=== PATIENT | female | born 1960 | race American Indian/Alaskan Native ===

== ENCOUNTER 2019-04-15 09:46 | Emergency (ER) | payer SELFPAY ==
[2019-04-15] MEDS ORDERED: HYDROcodone/ACETAMINOPHEN 5-325 MG TAB PO ONE (10:22)
[2019-04-15] MEDS ORDERED: ALBUTEROL 2.5 MG/3 ML NEBU IH ONE (10:22)
[2019-04-15] MEDS ORDERED: IPRATROPIUM 0.02% NEBU 2.5 ML IH ONE (10:22)
[2019-04-15] MEDS ORDERED: predniSONE 20 MG TAB PO ONE (10:22)
--- NOTE | 2019-04-15 10:28 | Emergency Department Report ---
HPI - General Chief Complaint: Chest Pain Time Seen by Provider: 04/15/19 10:14 - HPI HPI: Room 7 The patient is a 58-year-old female present with a chief complaint of shortness of breath and chest pain. The patient states for the past 9 days he has had a cold which includes cough, rhinorrhea and subjective fever. Patient states she is also had chest pain and shortness of breath. Patient describes her chest pain is sharp and intermittent in nature stating it usually comes on at night. Patient denies diaphoresis. Patient states she had one episode of nausea vomiting. ED Past Medical Hx - Past Medical History Hx Hypertension: Yes Hx Asthma: Yes Additional medical history: STAGE 4 KIDNEY FAILURE - Surgical History Additional Surgical History: Left ectopic , lipoma removal from back - Family History Family history: no significant - Social History Smoking Status: Never Smoker Substance Use Type: None (Denies illicit drug use) - Medications Home Medications: Home Medications Medication Instructions Recorded Confirmed Last Taken Type Albuterol INH(or & Nicu Only) 2 puff IH QID PRN #8.5 gram 04/15/19 Unknown Rx [ProAir HFA Inhaler] Albuterol Sulfate [Albuterol 0.63% 0.63 mg IH TID PRN #90 ml 04/15/19 Unknown Rx NEBS] Azithromycin [Zithromax Z-JOSUE] 0 mg PO DAILY #6 tab 04/15/19 Unknown Rx Benzonatate [Tessalon Perles] 100 mg PO Q8HR #30 capsule 04/15/19 Unknown Rx Prednisone [predniSONE 10 mg 10 mg PO .TAPER #1 tab.ds.pk 04/15/19 Unknown Rx (6-Day Pack, 21 Tabs)] Promethazine [Phenergan] 25 mg PO Q6HR PRN #20 tab 04/15/19 Unknown Rx Promethazine [Phenergan] 25 mg [place] Q6HR PRN #5 04/15/19 Unknown Rx traMADoL [Ultram] 50 mg PO Q6HR PRN #10 tablet 04/15/19 Unknown Rx ED Review of Systems ROS: Stated complaint: CHEST PAIN, SOB Other details as noted in HPI Constitutional: fever (Subjective). denies: diaphoresis Eyes: denies: eye pain ENT: denies: throat pain Respiratory: cough, shortness of breath Cardiovascular: chest pain Endocrine: no symptoms reported Gastrointestinal: nausea, vomiting Genitourinary: denies: dysuria Musculoskeletal: denies: back pain Neurological: denies: headache Physical Exam - Physical Exam Vital Signs: Vital Signs 04/15/19 10:01 Temperature 98.5 F Pulse Rate 75 Respiratory 24 Rate Blood Pressure 154/91 O2 Sat by Pulse 97 Oximetry Physical Exam: GENERAL: The patient is well-developed well-nourished female lying on stretcher not appearing to be in acute distress. [] HEENT: Normocephalic. Atraumatic. Extraocular motions are intact. Patient has moist mucous membranes. NECK: Supple. No meningitic signs are noted. There is no adenopathy noted. CHEST/LUNGS: Rhonchi diffuse wheezing. There is no respiratory distress noted. HEART/CARDIOVASCULAR: Regular. There is no tachycardia. There is no gallop rub or murmur. ABDOMEN: Abdomen is soft, nontender. Patient has normal bowel sounds. There is no abdominal distention. SKIN: There is no rash. There is no edema. There is no diaphoresis. NEURO: The patient is awake, alert, and oriented. The patient is cooperative. The patient has normal speech MUSCULOSKELETAL: There is no evidence of acute injury. ED Course Vital Signs 04/15/19 10:01 Temperature 98.5 F Pulse Rate 75 Respiratory 24 Rate Blood Pressure 154/91 O2 Sat by Pulse 97 Oximetry - Reevaluation(s) Reevaluation #1: 04/15/19 13:34 Patient much improved after neb. Lungs CTA bilaterally. Patient complains of mild nausea and requests she be discharged to go home ED Medical Decision Making - Lab Data Result diagrams: 04/15/19 10:35 04/15/19 10:35 Laboratory Tests 04/15/19 04/15/19 04/15/19 10:35 10:35 10:57 WBC 7.1 RBC 3.76 Hgb 12.5 Hct 38.0 MCV 101 H MCH 33 H MCHC 33 RDW 16.6 H Plt Count 312 Lymph % (Auto) 33.1 [place] % (Auto) 5.2 Eos % (Auto) 9.8 H Baso % (Auto) 0.9 Lymph # 2.4 [place] # 0.4 Eos # 0.7 H Baso # 0.1 Seg Neutrophils % 51.0 Seg Neutrophils # 3.6 Sodium 141 Potassium 4.0 Chloride 105.3 Carbon Dioxide 19 L Anion Gap 21 BUN 27 H Creatinine 2.4 H Estimated GFR 21 BUN/Creatinine Ratio 11 Glucose 90 Calcium 9.2 Total Creatine Kinase 247 H CK-MB (CK-2) 4.3 H CK-MB (CK-2) Rel Index 1.7 Troponin T < 0.010 NT-Pro-B Natriuret Pep 200.7 Influenza A (Rapid) Negative Influenza B (Rapid) Negative - EKG Data -: EKG Interpreted by Me EKG shows normal: sinus rhythm Rate: normal - EKG Data When compared to previous EKG there are: previous EKG unavailable Interpretation: other (No ischemic changes seen) - Radiology Data Radiology results: report reviewed (Chest x-ray), image reviewed (Chest x-ray) interpreted by me: Chest x-ray-no focal infiltrates, no pneumothorax [facility] [address] [place] [address] XRay Report Signed Patient: LIN MALIK MR#: [id number] : 1960 Acct:[id number] Age/Sex: 58 / F ADM Date: 04/15/19 Loc: ED Attending Dr: Ordering Physician: MARILYN CRAWFORD MD Date of Service: 04/15/19 Procedure(s): XR chest 1V ap Accession Number(s): [id number] cc: MARILYN CRAWFORD MD Fluoro Time In Min utes: CHEST 1 VIEW 04/15/2019 10:19 AM INDICATION / CLINICAL INFORMATION: chest pain, shortness of breath, cough. COMPARISON: None available. FINDINGS: SUPPORT DEVICES: None. HEART / MEDIASTINUM: No significant abnormality. LUNGS / PLEURA: No significant pulmonary or pleural abnormality. No pneumothorax. ADDITIONAL FINDINGS: No significant additional findings. IMPRESSION: 1. No acute abnormality of the chest. Signer Name: Mehul Benítez MD Signed: 04/15/2019 10:57 AM Workstation Name: [id number] Transcribed By: [place] Dictated By: Mehul Benítez MD Electronically Authenticated By: Mehul Benítez MD Signed Date/Time: 04/15/19 1057 DD/ 1055 TD/TT: - Differential Diagnosis Asthma exacerbation, pneumonia, bronchitis Critical care attestation.: If time is entered above; I have spent that time in minutes in the direct care of this critically ill patient, excluding procedure time. ED Disposition Clinical Impression: Acute bronchitis, Acute asthma exacerbation Disposition: - TO HOME OR SELFCARE Is pt being admited?: No Does the pt Need Aspirin: No Condition: Stable Instructions: Acute Bronchitis (ED) Additional Instructions: Return to the emergency department should you develop worsening symptoms, inability to tolerate food or liquids, high fever or any other concerns Prescriptions: Albuterol Sulfate [Albuterol 0.63% NEBS] 0.63 mg IH TID PRN #90 ml PRN Reason: Wheezing Promethazine [Phenergan] 25 mg PO Q6HR PRN #20 tab PRN Reason: Nausea Promethazine [Phenergan] 25 mg [place] Q6HR PRN #5 PRN Reason: Vomiting Prednisone [predniSONE 10 mg (6-Day Pack, 21 Tabs)] 10 mg PO .TAPER #1 tab.ds.pk Albuterol INH(or & Nicu Only) [ProAir HFA Inhaler] 2 puff IH QID PRN #8.5 gram PRN Reason: Shortness Of Breath Benzonatate [Tessalon Perles] 100 mg PO Q8HR #30 capsule traMADoL [Ultram] 50 mg PO Q6HR PRN #10 tablet PRN Reason: Pain Azithromycin [Zithromax Z-JOSUE] 0 mg PO DAILY #6 tab Referrals: [facility] [Outside] - 3-5 Days Time of Disposition: 13:38
--- NOTE | 2019-04-15 11:02 | XRay Report ---
CHEST 1 VIEW 04/15/2019 10:19 AM INDICATION / CLINICAL INFORMATION: chest pain, shortness of breath, cough. COMPARISON: None available. FINDINGS: SUPPORT DEVICES: None. HEART / MEDIASTINUM: No significant abnormality. LUNGS / PLEURA: No significant pulmonary or pleural abnormality. No pneumothorax. ADDITIONAL FINDINGS: No significant additional findings. IMPRESSION: 1. No acute abnormality of the chest. Signer Name: Mehul Benítez MD Signed: 04/15/2019 10:57 AM Workstation Name: [id number]
[2019-04-15 11:06] LABS: Basophils # (Auto) 0.1 K/mm3 (0.0-0.1); Basophils % (Auto) 0.9 % (0.0-1.8); Eosinophils # (Auto) 0.7 K/mm3 (0.0-0.4); Eosinophils % (Auto) 9.8 % (0.0-4.3); Hemoglobin 12.5 gm/dl (10.1-14.3); Lymphocytes # (Auto) 2.4 K/mm3 (1.2-5.4); Lymphocytes % (Auto) 33.1 % (13.4-35.0); Mean Corpuscular HGB Conc 33 % (30-34); Mean Corpuscular Volume 101 fl (79-97); Monocytes # (Auto) 0.4 K/mm3 (0.0-0.8); Monocytes % (Auto) 5.2 % (0.0-7.3); Platelet Count 312 K/mm3 (140-440); Red Blood Count 3.76 M/mm3 (3.65-5.03); Red Cell Distribution Width 16.6 % (13.2-15.2)
[2019-04-15 11:19] LABS: BUN/Creatinine Ratio 11; Blood Urea Nitrogen 27 mg/dL (7-17); Calcium 9.2 mg/dL (8.4-10.2); Creatine Kinase MB 4.3 ng/mL (0.0-4.0); Hemolysis Index 15
[2019-04-15] MEDS ORDERED: ONDANSETRON 4 MG/2 ML INJ IV ONE (11:56)
[2019-04-15] MEDS ORDERED: METOCLOPRAMIDE 10 MG/2 ML INJ IV ONE (12:52)
[2019-04-15] MEDS ORDERED: PROMETHAZINE 25 MG TAB PO ONE (13:28)
[2019-04-15 13:59] VITALS: BP 130/76
== END 2019-04-15 14:00 | disposition home or self-care (01) ==
LOC: ED 09:46
DX: J20.9 Acute bronchitis, unspecified (principal); J45.901 Unspecified asthma with (acute) exacerbation; I10 Essential (primary) hypertension; Z98.890 Other specified postprocedural states; Z79.899 Other long term (current) drug therapy
CPT/HCPCS: 36415; 71045; 80048; 82550; 82553; 83880; 84484; 85025; 87400; 93005; 93010; 94640; 96374; 96375; 99284; J2405; J2765; J7512; Q0169; 94644

== ENCOUNTER 2019-12-13 20:32 | Emergency (ER) | payer SELFPAY ==
[2019-12-13 21:11] VITALS: BP 147/92
== END 2019-12-14 02:30 | disposition home or self-care (01) ==
LOC: ED 20:32
DX: J45.909 Unspecified asthma, uncomplicated (principal); R05 Cough
CPT/HCPCS: 99281

== ENCOUNTER 2019-12-18 11:17 | Emergency (ER) | payer SELFPAY ==
[2019-12-18 11:38] VITALS: BP 155/88
[2019-12-18] MEDS ORDERED: ACETAMINOPHEN 325 MG TAB PO ONE (12:19)
--- NOTE | 2019-12-18 13:05 | XRay Report ---
CHEST 2 VIEWS INDICATION / CLINICAL INFORMATION: cough, fever. COMPARISON: 04/15/2019 FINDINGS: SUPPORT DEVICES: None. HEART / MEDIASTINUM: No significant abnormality. LUNGS / PLEURA: No significant pulmonary or pleural abnormality. No pneumothorax. ADDITIONAL FINDINGS: No significant additional findings. IMPRESSION: 1. No acute findings. No interval change. Signer Name: Paola Aguilar MD Signed: 12/18/2019 1:01 PM Workstation Name: [id number]
--- NOTE | 2019-12-18 13:27 | Emergency Department Report ---
- General Chief Complaint: Upper Respiratory Infection Stated Complaint: BODYACHES Time Seen by Provider: 12/18/19 12:08 Source: patient Mode of arrival: Ambulatory Limitations: No Limitations - History of Present Illness Initial Comments: Patient is a 59-year-old female presents emergency room with complaints of a cough that began a week ago. She states that it is a dry cough. He states that she has associated vomiting, diarrhea, fever, chills, occasional wheezing. She states that she has substernal chest discomfort only after frequent coughing. She denies any abdominal pain, sore throat, ear pain, shortness of breath. She states that she has a past medical history of hypertension and asthma. No allergies to medications. She denies any known sick contacts or recent travel. She was evaluated in the emergency department on 12/13/2019 for similar symptoms and reports that she was given steroids and antibiotics. - Related Data Previous Rx's Medication Instructions Recorded Last Taken Type Albuterol Mdi (or & Nicu Only) 2 puff IH QID PRN #8.5 gram 04/15/19 Unknown Rx [ProAir HFA Inhaler] Albuterol Sulfate [Albuterol 0.63% 0.63 mg IH TID PRN #90 ml 04/15/19 Unknown Rx NEBS] Azithromycin [Zithromax Z-JOSUE] 0 mg PO DAILY #6 tab 04/15/19 Unknown Rx Benzonatate [Tessalon Perles] 100 mg PO Q8HR #30 capsule 04/15/19 Unknown Rx Prednisone [predniSONE 10 mg 10 mg PO .TAPER #1 tab.ds.pk 04/15/19 Unknown Rx (6-Day Pack, 21 Tabs)] Promethazine [Phenergan] 25 mg PO Q6HR PRN #20 tab 04/15/19 Unknown Rx Promethazine [Phenergan] 25 mg [place] Q6HR PRN #5 04/15/19 Unknown Rx traMADoL [Ultram] 50 mg PO Q6HR PRN #10 tablet 04/15/19 Unknown Rx Allergies Allergy/AdvReac Type Severity Reaction Status Date / Time No Known Allergies Allergy Unverified 04/15/19 09:47 ED Review of Systems ROS: Stated complaint: BODYACHES Other details as noted in HPI Comment: All other systems reviewed and negative ED Past Medical Hx - Past Medical History Previous Medical History?: Yes Hx Hypertension: Yes Hx Asthma: Yes Additional medical history: STAGE 4 KIDNEY FAILURE - Surgical History Past Surgical History?: Yes Additional Surgical History: Left ectopic , lipoma removal from back - Social History Smoking Status: Never Smoker Substance Use Type: None - Medications Home Medications: Home Medications Medication Instructions Recorded Confirmed Last Taken Type Albuterol Mdi (or & Nicu Only) 2 puff IH QID PRN #8.5 gram 04/15/19 Unknown Rx [ProAir HFA Inhaler] Albuterol Sulfate [Albuterol 0.63% 0.63 mg IH TID PRN #90 ml 04/15/19 Unknown Rx NEBS] Azithromycin [Zithromax Z-JOSUE] 0 mg PO DAILY #6 tab 04/15/19 Unknown Rx Benzonatate [Tessalon Perles] 100 mg PO Q8HR #30 capsule 04/15/19 Unknown Rx Prednisone [predniSONE 10 mg 10 mg PO .TAPER #1 tab.ds.pk 04/15/19 Unknown Rx (6-Day Pack, 21 Tabs)] Promethazine [Phenergan] 25 mg PO Q6HR PRN #20 tab 04/15/19 Unknown Rx Promethazine [Phenergan] 25 mg [place] Q6HR PRN #5 04/15/19 Unknown Rx traMADoL [Ultram] 50 mg PO Q6HR PRN #10 tablet 04/15/19 Unknown Rx ED Physical Exam - General Limitations: No Limitations General appearance: alert, in no apparent distress - Head Head exam: Present: atraumatic, normocephalic - Eye Eye exam: Present: normal appearance - ENT ENT exam: Present: mucous membranes moist - Respiratory Respiratory exam: Present: normal lung sounds bilaterally. Absent: respiratory distress, wheezes, rales, rhonchi, stridor, chest wall tenderness, accessory muscle use, decreased breath sounds, prolonged expiratory - Cardiovascular Cardiovascular Exam: Present: regular rate, normal rhythm, normal heart sounds. Absent: systolic murmur, diastolic murmur, rubs, gallop - Neurological Exam Neurological exam: Present: alert, oriented X3 - Psychiatric Psychiatric exam: Present: normal affect, normal mood - Skin Skin exam: Present: warm, dry, intact ED Course Vital Signs 12/18/19 12/18/19 11:37 13:22 Temperature 99.8 F H Pulse Rate 89 Respiratory 18 18 Rate Blood Pressure 155/88 O2 Sat by Pulse 95 Oximetry ED Medical Decision Making - Radiology Data Radiology results: report reviewed CHEST 2 VIEWS INDICATION / CLINICAL INFORMATION: cough, fever. COMPARISON: 04/15/2019 FINDINGS: SUPPORT DEVICES: None. HEART / MEDIASTINUM: No significant abnormality. LUNGS / PLEURA: No significant pulmonary or pleural abnormality. No pneumothorax. ADDITIONAL FINDINGS: No significant additional findings. IMPRESSION: 1. No acute findings. No interval change. Signer Name: Paola Aguilar MD Signed: 12/18/2019 1:01 PM Workstation Name: [id number] Transcribed By: Dictated By: Paola Aguilar MD Electronically Authenticated By: Paola Aguilar MD Signed Date/Time: 12/18/19 1301 DD/ 1300 TD/TT: - Medical Decision Making Patient is a 59-year-old female presents emergency room with complaints of a cough that began a week ago. She states that it is a dry cough. He states that she has associated vomiting, diarrhea, fever, chills, occasional wheezing. She states that she has substernal chest discomfort only after frequent coughing. She denies any abdominal pain, sore throat, ear pain, shortness of breath. She states that she has a past medical history of hypertension and asthma. No allergies to medications. She denies any known sick contacts or recent travel. She was evaluated in the emergency department on 12/13/2019 for similar symptoms and reports that she was given steroids and antibiotics. Initial vitals with mild low-grade temperature, no tachycardia, no hypoxia. Breath sounds are clear bilaterally, no wheezing, no rales, no rhonchi, no respiratory distress, no accessory muscle use. CXR: 1. No acute findings. No interval change. Symptoms and examination appear most consistent with viral URI. Patient is presenting with the symptoms during COVID-19 pandemic, discussed the possibility of COVID-19 with patient, discussed strict return precautions, discussed outpatient testing, discussed self quarantine. pt does not meet hospital criteria for admission or for hospital COVID 19 testing. no clinical signs of dehydration, bacterial PNA or bronchitis. advised pt Please increase your fluid intake over the next several days. May take Tylenol as needed for fever or body aches. May take [id number] cold symptom relief medication such as Mucinex or TheraFlu. Follow-up with a primary care doctor for reexamination. Return to emergency room immediately for any new or worsening symptoms including but not limited to difficulty breathing, shortness of breath, severe chest pain, unable to tolerate by mouth intake, etc. Please self quarantine for 2 weeks from the onset of your symptoms. Please do not go out in public. If you are around others at home please wear a mask. If you need to cough or sneeze please do so in a napkin and immediately throw it away and immediately wash your hands. Wash your hands frequently. Wipe everything down. Recommend for you to get COVID-19 testing, may have this done at primary care doctor, health department, [place] thru testing centers. - Differential Diagnosis URI, PNA, acute bronchitis, viral syndrome, COVID 19 Critical care attestation.: If time is entered above; I have spent that time in minutes in the direct care of this critically ill patient, excluding procedure time. ED Disposition Clinical Impression: Upper respiratory infection Qualifiers: URI type: unspecified URI Qualified Code(s): J06.9 - Acute upper respiratory infection, unspecified Disposition: DC- TO HOME OR SELFCARE Is pt being admited?: No Does the pt Need Aspirin: No Condition: Stable Instructions: COVID-19, Viral Syndrome (ED) Additional Instructions: Please increase your fluid intake over the next several days. May take Tylenol as needed for fever or body aches. May take ctwe-yei-yuiwaim cold symptom relief medication such as Mucinex or TheraFlu. Follow-up with a primary care doctor for reexamination. Return to emergency room immediately for any new or worsening symptoms including but not limited to difficulty breathing, shortness of breath, severe chest pain, unable to tolerate by mouth intake, etc. Please self quarantine for 2 weeks from the onset of your symptoms. Please do not go out in public. If you are around others at home please wear a mask. If you need to cough or sneeze please do so in a napkin and immediately throw it away and immediately wash your hands. Wash your hands frequently. Wipe everything down. Recommend for you to get COVID-19 testing, may have this done at primary care doctor, health department, [place] thru testing centers. Referrals: CHIARA JUNIOR MD [Staff Physician] - 2-3 Days [facility] [Provider Group] - 2-3 Days Forms: Work/School Release Form(ED) Time of Disposition: 13:28 Print Language: POLISH
== END 2019-12-18 13:53 | disposition home or self-care (01) ==
LOC: ED 11:17
DX: J06.9 Acute upper respiratory infection, unspecified (principal); I12.9 Hypertensive chronic kidney disease with stage 1 through stage 4 chronic kidney disease, or unspecified chronic kidney disease; N18.4 Chronic kidney disease, stage 4 (severe); J45.909 Unspecified asthma, uncomplicated; Z98.890 Other specified postprocedural states; Z79.899 Other long term (current) drug therapy
CPT/HCPCS: 71046